=== PATIENT | female | born 1990 | race Caucasian/White ===

== ENCOUNTER → 2016-07-08 | Outpatient (CLI) | payer BC | LOC: BHSO 12:56 | DX: F31.81 Bipolar II disorder (principal) | CPT/HCPCS: 90791-AI ==

== ENCOUNTER → 2016-08-07 | Outpatient (CLI) | payer BC | LOC: BHSO 08:56 | DX: F31.81 Bipolar II disorder (principal) ==

== ENCOUNTER → 2016-10-09 | Outpatient (CLI) | payer BC | LOC: BHSO 15:38 | DX: F31.81 Bipolar II disorder (principal) ==

== ENCOUNTER → 2016-11-06 | Outpatient (CLI) | payer BC | LOC: BHSO 08:42 | DX: F31.81 Bipolar II disorder (principal) ==

== ENCOUNTER → 2017-02-01 | Outpatient (CLI) | payer BC | LOC: BHSO 15:07 | DX: F31.81 Bipolar II disorder (principal) ==

== ENCOUNTER → 2017-04-26 | Outpatient (CLI) | payer BC | LOC: BHSO 08:41 | DX: F31.81 Bipolar II disorder (principal) | CPT/HCPCS: G0463 ==

== ENCOUNTER → 2017-07-30 | Outpatient (CLI) | payer BC | LOC: BHSO 15:22 | DX: F31.60 Bipolar disorder, current episode mixed, unspecified (principal) | CPT/HCPCS: G0463 ==